=== PATIENT | female | born 1985 | race Caucasian/White ===

== ENCOUNTER 2023-12-12 19:46 | Emergency (ER) | payer MEDICAID, SELFPAY ==
--- NOTE | ~2023-12-12 | XR_ITS ---
EXAMINATION: XR WRIST, RIGHT CLINICAL INFORMATION: Pain. COMPARISON: None available. TECHNIQUE: PA, lateral, and oblique views of the right wrist are submitted, together with a dedicated navicular view. FINDINGS: The bones and soft tissues are normal. No fracture. Alignment is anatomic with normal joint spaces. No erosions or abnormal soft tissue calcifications. XR/XR wrist RT min 3V IMPRESSION: Normal right wrist.
[2023-12-12 19:56] VITALS: BP 108/66; BP 111/68; PULSE 88; PULSE 93; RESP 16; TEMP 36.8; O2SAT 96; O2SAT 97; BMI 27.4
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
[2023-12-12] MEDS: Ibuprofen 600 MG TABLET PO (21:35)
--- NOTE | 2023-12-12 22:00 | PC.NURSE ---
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 States pt will moving moving to [id number].
[2023-12-12 22:27] VITALS: BP 100/48; PULSE 85; RESP 16; O2SAT 98
[2023-12-13 00:10] VITALS: BP 100/48; PULSE 85; RESP 16; TEMP 36.7
== END 2023-12-13 00:11 | disposition home or self-care (01) ==
PROVIDERS: Emergency Provider Emergency Medicine
DX: S69.91XA Unspecified injury of right wrist, hand and finger(s), initial encounter (principal); M25.531 Pain in right wrist; R51.9 Headache, unspecified; Y00.XXXA Assault by blunt object, initial encounter; Y93.01 Activity, walking, marching and hiking; Y92.098 Other place in other non-institutional residence as the place of occurrence of the external cause; Y99.8 Other external cause status
CPT/HCPCS: 73110; 99283; 99284